=== PATIENT | female | born 1995 | race Caucasian/White ===

== ENCOUNTER 2018-11-07 16:22 | Emergency (ER) | payer MEDICAID ==
[~2018-11-07] VITALS: Ht 167.6 cm; Wt 60.0 kg
[2018-11-07 16:43] VITALS: BP 119/64
== END 2018-11-07 17:32 | disposition home or self-care (01) ==
LOC: ED 17:26
DX: B86 Scabies (principal); L20.84 Intrinsic (allergic) eczema
CPT/HCPCS: 99283